=== PATIENT | female | born 1970 | race Two or more races ===

== ENCOUNTER → 2020-12-25 | Outpatient (CLI) | payer OTHER ==
[~2020-12-25] MED LIST: AMIN1CAP2 PO; ASCO-90 PO; CALC500T93 PO; CHOL10003 PO; CYAN-27 PO; FISH1CAP PO; FOLI1TAB32 PO; GLUC500T11 PO; MELA1TAB46 PO; OREG1500 PO; PNV#1COM14 PO; THIA100T27 PO
[2020-12-25 11:53] LABS: MICROSCOPIC NOT IND
[2020-12-25 12:24] LABS: BASOPHILS % (AUTO) 1 % (0-1); EOSINOPHILS % (AUTO) 1 % (1-7); LYMPHOCYTES % (AUTO) 49 % (22-44); MEAN CORPUSCULAR HEMOGLOBIN 32.4 pg (27.0-34.8); MEAN CORPUSCULAR HGB CONC 34.3 g/dL (32.4-35.8); MEAN PLATELET VOLUME 8.3 fL (7.4-10.4); MONOCYTES % (AUTO) 5 % (2-9); NEUTROPHILS % (AUTO) 44 % (42-75); PLATELET COUNT 270 x10^3/uL (130-400); RED BLOOD COUNT 4.94 x10^6/uL (3.82-5.3); RED CELL DISTRIBUTION WIDTH 12.2 % (9.6-15.2)
[2020-12-25 12:28] LABS: MD NO
== END | disposition home or self-care (01) ==
LOC: STAR 09:48
PROVIDERS: ATTEND Obstetrics & Gynecology
DX: Z01.812 Encounter for preprocedural laboratory examination (principal); R87.810 Cervical high risk human papillomavirus (HPV) DNA test positive; Z20.822 Contact with and (suspected) exposure to COVID-19
CPT/HCPCS: 36415; 81003; 85025; U0003

== ENCOUNTER 2020-12-31 12:08 | Day surgery (SDC) | payer OTHER ==
[~2020-12-31] VITALS: Ht 165.1 cm; Wt 67.1 kg
[2020-12-31 12:40] VITALS: BP 140/98
[2020-12-31] MEDS ORDERED: CHLORHEXIDINE 15 ML UDC ONE (12:42)
[2020-12-31] MEDS ORDERED: CHLORHEXIDINE 15 ML UDC MM ONE (13:00)
[2020-12-31] MEDS ORDERED: LACTATED RINGERS 1,000 ML IV SCH (13:00)
[2020-12-31] MEDS ORDERED: INTERCEED 3 X 4 INCH DRESSING ONE (14:17)
[2020-12-31] MEDS ORDERED: BUPIVACAINE/PF-EPI 0.25% 1:200K ONE (14:17)
[2020-12-31] MEDS ORDERED: FENTANYL PF 100 MCG/2ML ONE (14:28)
[2020-12-31] MEDS ORDERED: MIDAZOLAM 1 MG/ML, 2ML ONE (14:28)
[2020-12-31] MEDS ORDERED: PROPOFOL 10 MG/ML, 20ML ONE (14:29)
[2020-12-31] MEDS ORDERED: DEXAMETHASONE 4 MG/ML, 1ML ONE (14:30)
[2020-12-31] MEDS ORDERED: ONDANSETRON 2MG/ML, 2ML ONE (14:30)
[2020-12-31] MEDS ORDERED: KETOROLAC 30 MG/1 ML ONE (14:59)
[2020-12-31] MEDS ORDERED: DIAZEPAM 5 MG/ML, 2ML IVPush PRN (15:00)
[2020-12-31] MEDS ORDERED: PROMETHAZINE 25 MG/ML, 1ML IVPush PRN (15:00)
[2020-12-31] MEDS ORDERED: FENTANYL PF 100 MCG/2ML IV PRN (15:00)
[2020-12-31] MEDS ORDERED: ACETAMINOPHEN 325 MG TABLET PO PRN (15:00)
[2020-12-31] MEDS ORDERED: HYDROmorphone 1 MG/ML, 1ML INJ IVPush PRN (15:00)
[2020-12-31] MEDS ORDERED: MEPERIDINE/PF 25MG/0.5ML IVPush PRN (15:00)
[2020-12-31] MEDS ORDERED: ONDANSETRON 2MG/ML, 2ML IVPush PRN (15:00)
[2020-12-31] MEDS ORDERED: OXYcodone 5 MG/5 ML ORAL.SOL UDC PO PRN (15:00)
== END 2020-12-31 16:45 | disposition home or self-care (01) ==
LOC: OUT 12:08
PROVIDERS: ATTEND Obstetrics & Gynecology
DX: R87.623 High grade squamous intraepithelial lesion on cytologic smear of vagina (HGSIL) (principal); N88.8 Other specified noninflammatory disorders of cervix uteri; Z79.899 Other long term (current) drug therapy; Z88.8 Allergy status to other drugs, medicaments and biological substances; Z90.49 Acquired absence of other specified parts of digestive tract
CPT/HCPCS: 57520; 88305; 88307; J1100; J1885; J2250; J2405; J2704; J3010; J7120